=== PATIENT | female | born 1960 | race African-American/Black ===

== ENCOUNTER 2017-05-12 09:41 | Inpatient (IN) | payer MEDICAID ==
[~2017-05-12] VITALS: Ht 160 cm; Wt 64.9 kg
[~2017-05-12 09:41] MED LIST: AMLO2.5T45 PO; ASPI-1159 PO; CARI350T PO; DOCU-138 PO; KLOR-CON PO; METO-539 PO; ROSU5TAB PO; ZOLP5TAB2 PO
[2017-05-12] MEDS ORDERED: ONDANSETRON HCL 4MG/2ML VIAL IV STA (10:17)
[2017-05-12] MEDS ORDERED: SODIUM CHLORIDE 0.9% 1,000 ML IV ONE (10:17)
[2017-05-12 10:41] LABS: HEMATOCRIT. 36.4 % (36.0-48.0); HEMOGLOBIN. 12.2 g/dL (12.0-16.0); MEAN CORPUSCULAR HEMOGLOBIN 30.4 pg (28.0-32.0); MEAN CORPUSCULAR VOLUME 90.5 fL (81.0-99.0); MEAN PLATELET VOLUME 8.8 fl (7.4-10.4); PLATELET 195 x1000/uL (130-400); RED BLOOD CELL COUNT 4.02 mill/uL (4.2-5.4); RED CELL DISTRIBUTION WIDTH 12.7 % (11.6-14.6)
[2017-05-12 10:47] LABS: INR 1.2; PROTHROMBIN TIME 12.6 sec (9.4-11.6)
[2017-05-12 10:56] LABS: CARBON DIOXIDE 28 mEq/L (21-32); CHLORIDE 104 mEq/L (98-107); TROPONIN I 0.04 ng/mL (0.00-0.04)
[2017-05-12] MEDS ORDERED: MORPHINE SULFATE 4 MG/ML CPJ (NOT FOR IM USE) IV ONE (11:15)
[2017-05-12] MEDS ORDERED: POTASSIUM CHLORIDE 20MEQ TABLET SR PO ONE ×2 (11:15→21:45)
[2017-05-12 11:25] LABS: PLATELET ESTIMATE NORMAL
[2017-05-12] MEDS: HYDROCODONE/ACETAMINOPHEN 5/325MG TABLET PO PRN ×2 (14:43→20:40)
[2017-05-12] MEDS ORDERED: ALBUTEROL (0.083%) 2.5MG/3ML NEB HHN STA (15:01)
[2017-05-12 15:26] LABS: CHLORIDE 104 mEq/L (98-107)
[2017-05-12 15:36] LABS: CARBON DIOXIDE 29 mEq/L (21-32); CREATINE KINASE 380 IU/L (26-192); CREATINE KINASE MB FRACTION < 0.5 ng/mL (0.5-3.6)
[2017-05-12] MEDS ORDERED: MAGNESIUM/ALUMINUM HYDROXIDE/SIMETHICONE 30ML UDC PO PRN (17:25)
[2017-05-12] MEDS ORDERED: DOCUSATE SODIUM 100MG CAPSULE PO PRN (17:25)
[2017-05-12] MEDS ORDERED: IPRATROPIUM/ALBUTEROL 0.5-3(2.5)MG/3ML NEB INH PRN (17:25)
[2017-05-12] MEDS ORDERED: CLONIDINE 0.1MG TABLET PO PRN (17:25)
[2017-05-12] MEDS: ASPIRIN 325MG EC TABLET PO SCH ×2 (17:30→18:52)
[2017-05-12 17:38] VITALS: BP 112/59
[2017-05-12] MEDS: ACETAMINOPHEN 325MG TABLET PO PRN (17:48)
[2017-05-12] MEDS ORDERED: POTASSIUM CHLORIDE 20MEQ TABLET SR PO NR (18:00)
[2017-05-12] MEDS: ENOXAPARIN 40MG/0.4ML SYR SUBCUT SCH (18:09)
[2017-05-12] MEDS ORDERED: METO25TA6 PO (18:32)
[2017-05-12] MEDS ORDERED: LISI-604 PO (18:32)
[2017-05-12] MEDS ORDERED: CARI350T27 PO (18:32)
[2017-05-12] MEDS ORDERED: AMLO5TAB4 PO (18:32)
[2017-05-12] MEDS: GUAIFENESIN 200MG/10ML SUGAR FREE UDC PO PRN (18:55)
[2017-05-12 20:00] VITALS: BP 98/54
[2017-05-12] MEDS: AMLODIPINE 2.5MG TABLET PO SCH (21:00)
[2017-05-12] MEDS ORDERED: MAGNESIUM 2 G PREMIX 50 ML IV NR (23:00)
[2017-05-12 23:33] LABS: CREATINE KINASE 430 IU/L (26-192); CREATINE KINASE MB FRACTION < 0.5 ng/mL (0.5-3.6)
[2017-05-12] MEDS: HYDROMORPHONE HCL/PF 2MG/ML CPJ IV PRN (23:40)
[2017-05-13] VITALS (7 sets, daily range): BP systolic 106–158; BP diastolic 63–88
[2017-05-13] MEDS: GUAIFENESIN 200MG/10ML SUGAR FREE UDC PO PRN ×2 (02:38→10:12)
[2017-05-13] MEDS: ACETAMINOPHEN 325MG TABLET PO PRN ×2 (02:38→16:52)
[2017-05-13 06:33] LABS: BASOPHILS % 0.4 % (0.0-2.0); HEMATOCRIT. 33.6 % (36.0-48.0); HEMOGLOBIN. 11.6 g/dL (12.0-16.0); LYMPHOCYTES % 36.5 % (20.0-50.0); MEAN CORPUSCULAR HEMOGLOBIN 31.5 pg (28.0-32.0); MEAN CORPUSCULAR VOLUME 91.3 fL (81.0-99.0); MONOCYTES % 14.8 % (2.0-8.0); NEUTROPHILS % 48.3 % (40.0-76.0); PLATELET 145 x1000/uL (130-400); RED BLOOD CELL COUNT 3.68 mill/uL (4.2-5.4); RED CELL DISTRIBUTION WIDTH 12.9 % (11.6-14.6)
[2017-05-13] MEDS: HYDROMORPHONE HCL/PF 2MG/ML CPJ IV PRN ×3 (06:41→18:58)
[2017-05-13 08:22] LABS: CHLORIDE 104 mEq/L (98-107)
[2017-05-13] MEDS: ASPIRIN 325MG EC TABLET PO SCH (10:13)
[2017-05-13] MEDS: AMLODIPINE 2.5MG TABLET PO SCH ×2 (10:13→20:51)
[2017-05-13 10:14] LABS: CARBON DIOXIDE 26 mEq/L (21-32); CREATINE KINASE 422 IU/L (26-192); CREATINE KINASE MB FRACTION 0.5 ng/mL (0.5-3.6); HDL CHOLESTEROL 51 mg/dL (40-59); LDL CHOLESTEROL 63 mg/dL (5-100); TROPONIN I 0.05 ng/mL (0.00-0.04)
[2017-05-13] MEDS ORDERED: POTASSIUM CHLORIDE 20MEQ TABLET SR PO ONE (13:32)
[2017-05-13] MEDS ORDERED: IPRATROPIUM/ALBUTEROL 0.5-3(2.5)MG/3ML NEB HHN PRN (13:45)
[2017-05-13] MEDS: POTASSIUM CHLORIDE 20MEQ TABLET SR PO SCH ×2 (14:30→17:06)
[2017-05-13] MEDS: LEVOFLOXACIN 500MG PREMIX 100 ML IV SCH (15:38)
[2017-05-13] MEDS ORDERED: RACEPINEPHRINE 2.25% 0.5ML NEB VIAL HHN PRN (15:45)
[2017-05-13] MEDS: METHYLPREDNISOLONE SOD SUCC 125 MG/2 ML VIAL IV SCH (16:51)
[2017-05-13] MEDS: IPRATROPIUM/ALBUTEROL 0.5-3(2.5)MG/3ML NEB HHN SCH ×2 (17:05→21:18)
[2017-05-13] MEDS: BUDESONIDE 0.5MG/2ML NEB HHN SCH ×2 (17:06→21:18)
[2017-05-13] MEDS: ENOXAPARIN 40MG/0.4ML SYR SUBCUT SCH (18:53)
[2017-05-13] MEDS: FAMOTIDINE 20MG TABLET PO SCH (20:52)
[2017-05-13] MEDS: ONDANSETRON HCL 4MG/2ML VIAL IV PRN (20:52)
[2017-05-14] VITALS: BP 122/80
[2017-05-14] MEDS: ACETAMINOPHEN 325MG TABLET PO PRN (00:10)
[2017-05-14] MEDS: METHYLPREDNISOLONE SOD SUCC 125 MG/2 ML VIAL IV SCH ×3 (00:10→19:41)
[2017-05-14] MEDS: IPRATROPIUM/ALBUTEROL 0.5-3(2.5)MG/3ML NEB HHN SCH ×6 (00:46→20:35)
[2017-05-14 04:00] VITALS: BP 113/65
[2017-05-14] MEDS: HYDROMORPHONE HCL/PF 2MG/ML CPJ IV PRN ×3 (04:08→20:15)
[2017-05-14 06:24] LABS: HEMATOCRIT. 36.9 % (36.0-48.0); HEMOGLOBIN. 12.7 g/dL (12.0-16.0); MEAN CORPUSCULAR HEMOGLOBIN 31.3 pg (28.0-32.0); MEAN CORPUSCULAR VOLUME 90.7 fL (81.0-99.0); MEAN PLATELET VOLUME 9.5 fl (7.4-10.4); PLATELET 159 x1000/uL (130-400); RED BLOOD CELL COUNT 4.07 mill/uL (4.2-5.4); RED CELL DISTRIBUTION WIDTH 12.9 % (11.6-14.6)
[2017-05-14 08:00] VITALS: BP 135/61
[2017-05-14] MEDS: ASPIRIN 81MG EC TABLET PO SCH (08:49)
[2017-05-14] MEDS: FAMOTIDINE 20MG TABLET PO SCH ×2 (08:49→20:14)
[2017-05-14] MEDS: AMLODIPINE 2.5MG TABLET PO SCH ×2 (08:54→20:14)
[2017-05-14 09:37] LABS: CHLORIDE 102 mEq/L (98-107)
[2017-05-14 09:51] LABS: CARBON DIOXIDE 23 mEq/L (21-32); TROPONIN I 0.03 ng/mL (0.00-0.04)
[2017-05-14] MEDS: BUDESONIDE 0.5MG/2ML NEB HHN SCH ×2 (09:55→20:36)
[2017-05-14 12:00] VITALS: BP 129/80
[2017-05-14] MEDS: OSELTAMIVIR 75MG CAPSULE PO SCH ×2 (12:51→20:14)
[2017-05-14] MEDS: ONDANSETRON HCL 4MG/2ML VIAL IV PRN (13:03)
[2017-05-14] MEDS ORDERED: POTASSIUM CHLORIDE 20MEQ TABLET SR PO SCH (14:00)
[2017-05-14] MEDS: LEVOFLOXACIN 500MG PREMIX 100 ML IV SCH (14:49)
[2017-05-14 16:00] VITALS: BP 98/71
[2017-05-14 17:02] LABS: PLATELET ESTIMATE NORMAL
[2017-05-14] MEDS: AZITHROMYCIN 500 MG TABLET PO SCH (19:40)
[2017-05-14] MEDS: ENOXAPARIN 40MG/0.4ML SYR SUBCUT SCH (19:41)
[2017-05-14 20:00] VITALS: BP 130/75
[2017-05-14] MEDS: GUAIFENESIN 200MG/10ML SUGAR FREE UDC PO PRN (21:07)
[2017-05-14] MEDS: ZOLPIDEM TARTRATE 5MG TABLET PO PRN (21:07)
[2017-05-14 21:19] LABS: CLARITY URINE CLEAR (CLEAR); COLOR URINE YELLOW (YELLOW); KETONES URINE NEGATIVE (NEGATIVE); LEUKOCYTE ESTERASE URINE NEGATIVE (NEGATIVE); NITRITE URINE NEGATIVE (NEGATIVE); OCCULT BLOOD URINE NEGATIVE (NEGATIVE); PH URINE 5.5 (4.5-8.0); PROTEIN URINE TRACE (NEGATIVE); SPECIFIC GRAVITY URINE 1.014 (1.005-1.030); UROBILINOGEN URINE 0.2 E.U./dL (0.2-1.0)
[2017-05-14 21:36] LABS: *AMPHETAMINES SCREEN URINE NEGATIVE (NEGATIVE); *BARBITURATES SCREEN URINE NEGATIVE (NEGATIVE); *BENZODIAZEPINES SCREEN URINE NEGATIVE (NEGATIVE); *COCAINE SCREEN URINE PRESUMTIVE POSITIVE (NEGATIVE); CANNABINOID URINE SCREEN PRESUMTIVE POSITIVE (NEGATIVE); METHADONE URINE SCREEN NEGATIVE (NEGATIVE); OPIATES URINE SCREEN PRESUMTIVE POSITIVE (NEGATIVE); PHENCYCLIDINE URINE SCREEN NEGATIVE (NEGATIVE)
[2017-05-15] VITALS: BP 142/78
[2017-05-15] MEDS: METHYLPREDNISOLONE SOD SUCC 125 MG/2 ML VIAL IV SCH ×2 (00:01→08:51)
[2017-05-15] MEDS: ACETYLCYSTEINE 100MG/ML 10% VIAL 4ML INH SCH ×2 (00:06→15:27)
[2017-05-15] MEDS: IPRATROPIUM/ALBUTEROL 0.5-3(2.5)MG/3ML NEB HHN SCH ×5 (00:35→21:00)
[2017-05-15] MEDS: HYDROMORPHONE HCL/PF 2MG/ML CPJ IV PRN ×3 (03:49→21:11)
[2017-05-15 04:00] VITALS: BP 156/88
[2017-05-15 07:08] LABS: CARBON DIOXIDE 30 mEq/L (21-32); CHLORIDE 100 mEq/L (98-107)
[2017-05-15 07:22] LABS: HEMOGLOBIN. 13.3 g/dL (12.0-16.0); MEAN CORPUSCULAR HEMOGLOBIN 30.9 pg (28.0-32.0); MEAN CORPUSCULAR VOLUME 90.6 fL (81.0-99.0); MEAN PLATELET VOLUME 9.4 fl (7.4-10.4); PLATELET 172 x1000/uL (130-400)
[2017-05-15] MEDS: BUDESONIDE 0.5MG/2ML NEB HHN SCH (07:48)
[2017-05-15 08:00] VITALS: BP 137/78
[2017-05-15] MEDS: AZITHROMYCIN 500 MG TABLET PO SCH (08:51)
[2017-05-15] MEDS: FAMOTIDINE 20MG TABLET PO SCH ×2 (08:51→20:48)
[2017-05-15] MEDS: AMLODIPINE 2.5MG TABLET PO SCH ×2 (08:51→20:51)
[2017-05-15] MEDS: ASPIRIN 81MG EC TABLET PO SCH (08:51)
[2017-05-15] MEDS: OSELTAMIVIR 75MG CAPSULE PO SCH ×2 (08:51→20:49)
[2017-05-15] MEDS: ONDANSETRON HCL 4MG/2ML VIAL IV PRN (08:51)
[2017-05-15 11:29] LABS: PLATELET ESTIMATE NORMAL
[2017-05-15 12:00] VITALS: BP 128/79
[2017-05-15 16:00] VITALS: BP 148/82
[2017-05-15] MEDS: METHYLPREDNISOLONE SOD SUCC 40 MG/ML VIAL IV SCH ×2 (17:43→23:35)
[2017-05-15] MEDS: ENOXAPARIN 40MG/0.4ML SYR SUBCUT SCH (17:44)
[2017-05-15 20:00] VITALS: BP 126/74
[2017-05-15] MEDS: ZOLPIDEM TARTRATE 5MG TABLET PO PRN (21:10)
[2017-05-15] MEDS: ACETAMINOPHEN 325MG TABLET PO PRN (23:35)
[2017-05-16] VITALS: BP 138/89
[2017-05-16] MEDS: IPRATROPIUM/ALBUTEROL 0.5-3(2.5)MG/3ML NEB HHN SCH ×4 (00:06→12:26)
[2017-05-16] MEDS: GUAIFENESIN 200MG/10ML SUGAR FREE UDC PO PRN (03:11)
[2017-05-16] MEDS: HYDROMORPHONE HCL/PF 2MG/ML CPJ IV PRN ×2 (03:13→11:43)
[2017-05-16 04:00] VITALS: BP 140/95
[2017-05-16] MEDS: BUDESONIDE 0.5MG/2ML NEB HHN SCH ×2 (04:00→08:35)
[2017-05-16 06:25] LABS: HEMATOCRIT. 38.6 % (36.0-48.0); HEMOGLOBIN. 13.1 g/dL (12.0-16.0); MEAN CORPUSCULAR HEMOGLOBIN 30.9 pg (28.0-32.0); MEAN CORPUSCULAR VOLUME 91.3 fL (81.0-99.0); MEAN PLATELET VOLUME 9.8 fl (7.4-10.4); PLATELET 175 x1000/uL (130-400); RED BLOOD CELL COUNT 4.23 mill/uL (4.2-5.4); RED CELL DISTRIBUTION WIDTH 12.9 % (11.6-14.6)
[2017-05-16 08:00] VITALS: BP 146/93
[2017-05-16] MEDS: ACETYLCYSTEINE 100MG/ML 10% VIAL 4ML INH SCH (08:36)
[2017-05-16] MEDS: ASPIRIN 81MG EC TABLET PO SCH (08:56)
[2017-05-16] MEDS: OSELTAMIVIR 75MG CAPSULE PO SCH (08:56)
[2017-05-16] MEDS: METHYLPREDNISOLONE SOD SUCC 40 MG/ML VIAL IV SCH (08:56)
[2017-05-16] MEDS: AZITHROMYCIN 500 MG TABLET PO SCH (08:56)
[2017-05-16] MEDS: FAMOTIDINE 20MG TABLET PO SCH (08:56)
[2017-05-16] MEDS: AMLODIPINE 2.5MG TABLET PO SCH (08:56)
[2017-05-16 09:40] LABS: PLATELET ESTIMATE NORMAL
[2017-05-16 10:32] LABS: CARBON DIOXIDE 28 mEq/L (21-32); CHLORIDE 98 mEq/L (98-107)
[2017-05-16] MEDS: ONDANSETRON HCL 4MG/2ML VIAL IV PRN (10:42)
[2017-05-16 12:00] VITALS: BP 132/88
[2017-05-16 14:19] VITALS: BP 132/88
[2017-05-16] MEDS ORDERED: BUDESONIDE 0.5MG/2ML NEB HHN SCH (16:00)
== END 2017-05-16 15:10 | disposition home or self-care (01) | DRG 140 ==
LOC: ER 09:47 → 5WST 11:20 → EDBEDREQTM 11:22 → EDBEDREQ 11:22 → ENRESERV 15:51
PROVIDERS: ADMIT Internal Medicine; ATTEND Internal Medicine
DX: J44.0 Chronic obstructive pulmonary disease with (acute) lower respiratory infection (principal); J96.00 Acute respiratory failure, unspecified whether with hypoxia or hypercapnia; I24.9 Acute ischemic heart disease, unspecified; E87.6 Hypokalemia; J44.1 Chronic obstructive pulmonary disease with (acute) exacerbation; I25.10 Atherosclerotic heart disease of native coronary artery without angina pectoris; I49.3 Ventricular premature depolarization; D72.819 Decreased white blood cell count, unspecified; I11.9 Hypertensive heart disease without heart failure; D64.9 Anemia, unspecified; E78.00 Pure hypercholesterolemia, unspecified; E78.5 Hyperlipidemia, unspecified; J40 Bronchitis, not specified as acute or chronic; J10.1 Influenza due to other identified influenza virus with other respiratory manifestations; Z87.891 Personal history of nicotine dependence; Z88.6 Allergy status to analgesic agent; Z79.82 Long term (current) use of aspirin; Z79.899 Other long term (current) drug therapy; Z78.9 Other specified health status; Z82.49 Family history of ischemic heart disease and other diseases of the circulatory system; Z90.710 Acquired absence of both cervix and uterus; Z95.1 Presence of aortocoronary bypass graft
CPT/HCPCS: 36415; 71045; 80048; 80053; 80061; 80305; 81001; 81003; 82550; 82553; 83605; 83735; 83880; 84443; 84484; 85025; 85379; 85610; 87040; 87070; 87086; 87804; 93005; 93306; 93970; 94640; 94644; 96374; 96375; 99285; J1170; J1650; J1956; J2270; J2405; J2920; J2930; J3475; J7030; J7608; J7611; J7620; J7626

== ENCOUNTER 2017-09-14 10:31 | Emergency (ER) | payer MEDICAID ==
[~2017-09-14 10:31] MED LIST changes: -AMLO2.5T45 PO; +AMLO5TAB4 PO; +CARI350T27 PO; -KLOR-CON PO; +LISI-604 PO; -METO-539 PO; +METO25TA6 PO
[2017-09-14] MEDS ORDERED: IBUPROFEN 600MG TABLET PO ONE (11:15)
[2017-09-14] MEDS ORDERED: HYDROCODONE/ACETAMINOPHEN 5/325MG TABLET PO ONE (11:30)
[2017-09-14 14:07] VITALS: BP 128/99
== END 2017-09-14 14:10 | disposition home or self-care (01) ==
LOC: ER 11:48
DX: S91.312A Laceration without foreign body, left foot, initial encounter (principal); I10 Essential (primary) hypertension; Z88.8 Allergy status to other drugs, medicaments and biological substances; Z79.82 Long term (current) use of aspirin; W25.XXXA Contact with sharp glass, initial encounter; Y93.89 Activity, other specified; Y92.89 Other specified places as the place of occurrence of the external cause; Y99.8 Other external cause status
CPT/HCPCS: 73630; 99284; Z7610

== ENCOUNTER 2018-05-16 11:31 | Inpatient (IN) | payer MEDICAID ==
[~2018-05-16] VITALS: Ht 162.6 cm; Wt 57.6 kg
[~2018-05-16 11:31] MED LIST changes: -CARI350T PO; +S350 PO
[2018-05-16] MEDS ORDERED: ONDANSETRON HCL 4MG/2ML INJ IV STA (12:13)
[2018-05-16] MEDS ORDERED: MAGNESIUM 2 G PREMIX 50 ML IV STA (12:13)
[2018-05-16] MEDS ORDERED: IPRATROPIUM BROMIDE (0.02%) 0.5MG/2.5ML NEB HHN STA (12:13)
[2018-05-16] MEDS ORDERED: MORPHINE SULFATE 4 MG/ML CPJ (NOT FOR IM USE) IV STA (12:13)
[2018-05-16] MEDS ORDERED: METHYLPREDNISOLONE SOD SUCC 125 MG/2 ML VIAL IV STA (12:13)
[2018-05-16] MEDS ORDERED: ALBUTEROL (0.083%) 2.5MG/3ML NEB HHN STA (12:13)
[2018-05-16 13:18] LABS: BASOPHILS % 0.6 % (0.0-2.0); EOSINOPHILS % 1.9 % (0.0-5.0); HEMATOCRIT. 45.9 % (36.0-48.0); HEMOGLOBIN. 15.4 g/dL (12.0-16.0); LYMPHOCYTES % 19.2 % (20.0-50.0); MEAN CORPUSCULAR HEMOGLOBIN 30.5 pg (28.0-32.0); MEAN CORPUSCULAR VOLUME 90.5 fL (81.0-99.0); MEAN PLATELET VOLUME 8.9 fl (7.4-10.4); MONOCYTES % 6.3 % (2.0-8.0); PLATELET 232 x1000/uL (130-400); RED BLOOD CELL COUNT 5.07 mill/uL (4.2-5.4); RED CELL DISTRIBUTION WIDTH 13.2 % (11.6-14.6)
[2018-05-16 13:27] LABS: PARTIAL THROMBOPLASTIN TIME 26.1 sec (23.4-31.0); PROTHROMBIN TIME 10.1 sec (9.1-11.1)
[2018-05-16 13:30] LABS: CHLORIDE 104 mEq/L (98-107)
[2018-05-16] MEDS ORDERED: ASPIRIN 81MG TABLET PO ONE (14:15)
[2018-05-16] MEDS ORDERED: POTASSIUM CHLORIDE 20MEQ TABLET SR PO ONE (14:15)
[2018-05-16] MEDS ORDERED: ONDANSETRON HCL 4MG/2ML INJ IV PRN (14:15)
[2018-05-16] MEDS ORDERED: DOCUSATE SODIUM 100MG CAPSULE PO PRN (14:15)
[2018-05-16] MEDS ORDERED: MAGNESIUM/ALUMINUM HYDROXIDE/SIMETHICONE 30ML UDC PO PRN (14:15)
[2018-05-16] MEDS ORDERED: ACETAMINOPHEN 325MG TABLET PO PRN (14:15)
[2018-05-16] MEDS ORDERED: HYDROCODONE/ACETAMINOPHEN 5/325MG TABLET PO PRN (14:15)
[2018-05-16] MEDS ORDERED: NA PHOS,M-B/NA PHOS,DI-BA ENEMA 118ML PR PRN (14:15)
[2018-05-16] MEDS ORDERED: IPRATROPIUM/ALBUTEROL 0.5-3(2.5)MG/3ML NEB INH PRN (14:15)
[2018-05-16] MEDS ORDERED: CLONIDINE 0.1MG TABLET PO PRN (14:15)
[2018-05-16 14:59] LABS: CLARITY URINE CLEAR (CLEAR); COLOR URINE YELLOW (YELLOW); KETONES URINE NEGATIVE (NEGATIVE); LEUKOCYTE ESTERASE URINE NEGATIVE (NEGATIVE); NITRITE URINE NEGATIVE (NEGATIVE); OCCULT BLOOD URINE NEGATIVE (NEGATIVE); PH URINE 6.5 (4.5-8.0); PROTEIN URINE NEGATIVE (NEGATIVE); SPECIFIC GRAVITY URINE 1.011 (1.005-1.030); UROBILINOGEN URINE 0.2 E.U./dL (0.2-1.0)
[2018-05-16] MEDS: MORPHINE SULFATE 4 MG/ML CPJ (NOT FOR IM USE) IV PRN ×3 (15:08→23:35)
[2018-05-16 16:31] LABS: CHLORIDE 106 mEq/L (98-107)
[2018-05-16 22:02] VITALS: BP 157/90
[2018-05-16 22:06] VITALS: BP 157/90
[2018-05-16] MEDS: LORAZEPAM 2MG/ML CPJ IV PRN (22:40)
[2018-05-16 23:48] VITALS: BP 113/60
[2018-05-17] MEDS: MORPHINE SULFATE 4 MG/ML CPJ (NOT FOR IM USE) IV PRN ×5 (03:56→20:30)
[2018-05-17] MEDS: DIPHENHYDRAMINE 50MG/ML VIAL IV PRN ×5 (03:57→20:30)
[2018-05-17 04:00] VITALS: BP 132/73
[2018-05-17 08:00] VITALS: BP 149/81
[2018-05-17 08:07] LABS: BASOPHILS % 0.2 % (0.0-2.0); HEMATOCRIT. 37.4 % (36.0-48.0); HEMOGLOBIN. 12.3 g/dL (12.0-16.0); MEAN CORPUSCULAR HEMOGLOBIN 29.9 pg (28.0-32.0); MEAN CORPUSCULAR VOLUME 90.5 fL (81.0-99.0); MEAN PLATELET VOLUME 8.6 fl (7.4-10.4); MONOCYTES % 5.7 % (2.0-8.0); NEUTROPHILS % 83.1 % (40.0-76.0); PLATELET 200 x1000/uL (130-400); RED BLOOD CELL COUNT 4.13 mill/uL (4.2-5.4); RED CELL DISTRIBUTION WIDTH 13.4 % (11.6-14.6)
[2018-05-17] MEDS: GUAIFENESIN 200MG/10ML SUGAR FREE UDC PO PRN (08:15)
[2018-05-17] MEDS: ENOXAPARIN 40MG/0.4ML SYR SUBCUT SCH (08:16)
[2018-05-17] MEDS: ASPIRIN 81MG EC TABLET PO SCH (08:18)
[2018-05-17] MEDS: AMLODIPINE 5MG TABLET PO SCH ×2 (08:19→20:32)
[2018-05-17] MEDS: LORAZEPAM 2MG/ML CPJ IV PRN ×2 (08:19→21:23)
[2018-05-17 08:40] LABS: CHLORIDE 107 mEq/L (98-107)
[2018-05-17 08:49] LABS: CREATINE KINASE 81 IU/L (26-192); LDL CHOLESTEROL 110 mg/dL (5-100)
[2018-05-17 08:50] LABS: CREATINE KINASE MB FRACTION 1.3 ng/mL (0.5-3.6); HDL CHOLESTEROL 81 mg/dL (40-59)
[2018-05-17 08:51] LABS: T4 FREE 0.81 ng/dL (0.76-1.46)
[2018-05-17] MEDS ORDERED: LEVOFLOXACIN 500MG PREMIX 100 ML IV SCH (10:00)
[2018-05-17] MEDS ORDERED: CLONIDINE 0.2MG TABLET PO PRN (10:15)
[2018-05-17] MEDS ORDERED: AMLODIPINE 5MG TABLET PO SCH (10:15)
[2018-05-17] MEDS: METHYLPREDNISOLONE SOD SUCC 125 MG/2 ML VIAL IV SCH ×2 (10:23→16:20)
[2018-05-17 12:00] VITALS: BP 128/76
[2018-05-17] MEDS ORDERED: CEFTRIAXONE 1,000 MG in DEXTROSE 5% WATER 50 ML IV SCH (13:45)
[2018-05-17] MEDS ORDERED: LORATADINE 10MG TABLET PO SCH (13:45)
[2018-05-17] MEDS ORDERED: BENZONATATE 100MG CAPSULE PO PRN (14:50)
[2018-05-17] MEDS ORDERED: CEFTRIAXONE 1 G PREMIX 50 ML IV SCH (16:00)
[2018-05-17 16:07] VITALS: BP 126/74
[2018-05-17] MEDS: AZITHROMYCIN 500 MG TABLET PO SCH (16:19)
[2018-05-17] MEDS: IPRATROPIUM/ALBUTEROL 0.5-3(2.5)MG/3ML NEB HHN SCH ×3 (16:35→23:21)
[2018-05-17] MEDS ORDERED: MONTELUKAST SODIUM 10MG TABLET PO SCH (17:00)
[2018-05-17 20:00] VITALS: BP 135/74
[2018-05-17] MEDS ORDERED: FAMOTIDINE 20MG TABLET PO SCH (21:00)
[2018-05-18] VITALS (7 sets, daily range): BP systolic 115–147; BP diastolic 70–89
[2018-05-18] MEDS: DIPHENHYDRAMINE 50MG/ML VIAL IV PRN ×5 (01:23→20:42)
[2018-05-18] MEDS: MORPHINE SULFATE 4 MG/ML CPJ (NOT FOR IM USE) IV PRN ×5 (01:24→22:45)
[2018-05-18] MEDS: IPRATROPIUM/ALBUTEROL 0.5-3(2.5)MG/3ML NEB HHN SCH ×6 (02:44→23:59)
[2018-05-18] MEDS: LORAZEPAM 2MG/ML CPJ IV PRN ×2 (06:33→20:42)
[2018-05-18 07:36] LABS: *AMPHETAMINES SCREEN URINE NEGATIVE (NEGATIVE); *BARBITURATES SCREEN URINE NEGATIVE (NEGATIVE); *BENZODIAZEPINES SCREEN URINE NEGATIVE (NEGATIVE); *COCAINE SCREEN URINE PRESUMTIVE POSITIVE (NEGATIVE)
[2018-05-18 07:37] LABS: METHADONE URINE SCREEN NEGATIVE (NEGATIVE); OPIATES URINE SCREEN PRESUMTIVE POSITIVE (NEGATIVE); PHENCYCLIDINE URINE SCREEN NEGATIVE (NEGATIVE)
[2018-05-18 07:38] LABS: CANNABINOID URINE SCREEN NEGATIVE (NEGATIVE)
[2018-05-18 08:24] LABS: HEMATOCRIT. 39.4 % (36.0-48.0); HEMOGLOBIN. 12.9 g/dL (12.0-16.0); MEAN CORPUSCULAR HEMOGLOBIN 29.8 pg (28.0-32.0); MEAN CORPUSCULAR VOLUME 90.8 fL (81.0-99.0); PLATELET 215 x1000/uL (130-400); RED BLOOD CELL COUNT 4.34 mill/uL (4.2-5.4); RED CELL DISTRIBUTION WIDTH 13.3 % (11.6-14.6)
[2018-05-18 09:02] LABS: CHLORIDE 105 mEq/L (98-107)
[2018-05-18 09:17] LABS: HDL CHOLESTEROL 94 mg/dL (40-59)
[2018-05-18 09:21] LABS: LDL CHOLESTEROL 117 mg/dL (5-100)
[2018-05-18 09:22] LABS: CREATINE KINASE 88 IU/L (26-192)
[2018-05-18] MEDS: GUAIFENESIN 200MG/10ML SUGAR FREE UDC PO PRN (09:27)
[2018-05-18] MEDS: METHYLPREDNISOLONE SOD SUCC 125 MG/2 ML VIAL IV SCH ×2 (09:27)
[2018-05-18] MEDS: ENOXAPARIN 40MG/0.4ML SYR SUBCUT SCH (09:27)
[2018-05-18] MEDS: ASPIRIN 81MG EC TABLET PO SCH (09:28)
[2018-05-18] MEDS: AMLODIPINE 5MG TABLET PO SCH ×2 (09:28→20:42)
[2018-05-18] MEDS: AZITHROMYCIN 500 MG TABLET PO SCH (09:28)
[2018-05-18 13:03] LABS: PLATELET ESTIMATE NORMAL
[2018-05-18] MEDS ORDERED: METHYLPREDNISOLONE SOD SUCC 125 MG/2 ML VIAL IV SCH (17:00)
[2018-05-19] VITALS: BP 159/68
[2018-05-19] MEDS: LORAZEPAM 2MG/ML CPJ IV PRN ×3 (01:39→22:27)
[2018-05-19] MEDS: DIPHENHYDRAMINE 50MG/ML VIAL IV PRN ×5 (01:39→23:40)
[2018-05-19] MEDS: GUAIFENESIN 200MG/10ML SUGAR FREE UDC PO PRN ×2 (03:51→08:33)
[2018-05-19] MEDS: MORPHINE SULFATE 4 MG/ML CPJ (NOT FOR IM USE) IV PRN ×5 (03:52→21:55)
[2018-05-19 04:00] VITALS: BP 141/69
[2018-05-19] MEDS: IPRATROPIUM/ALBUTEROL 0.5-3(2.5)MG/3ML NEB HHN SCH ×5 (04:26→21:13)
[2018-05-19 07:09] LABS: CHLORIDE 104 mEq/L (98-107)
[2018-05-19 08:00] VITALS: BP 156/93
[2018-05-19] MEDS: AZITHROMYCIN 500 MG TABLET PO SCH (08:33)
[2018-05-19] MEDS: AMLODIPINE 5MG TABLET PO SCH ×2 (08:33→21:00)
[2018-05-19] MEDS: ENOXAPARIN 40MG/0.4ML SYR SUBCUT SCH (08:34)
[2018-05-19] MEDS: ASPIRIN 81MG EC TABLET PO SCH (08:34)
[2018-05-19] MEDS ORDERED: TERBUTALINE SULFATE 1MG/ML VIAL SUBCUT SCH (10:00)
[2018-05-19] MEDS ORDERED: POTASSIUM CHLORIDE 20MEQ TABLET SR PO SCH (10:15)
[2018-05-19 10:28] LABS: BG BASE EXCESS 0.8 mmol/L (-2.0-2.0); BG CARBOXYHEMOGLOBIN 0.7 % (0.5-1.5); BG DEOXYHEMOGLOBIN 4.7 % (0.0-5.0); BG FRACTION INSPIRED OXYGEN 28; BG HCO3 ACT 25.9 mmol/L (22.0-26.0); BG METHEMOGLOBIN 0.1 % (0.0-1.5); BG OXYGEN SATURATION 95.3 % (92.0-98.5); BG OXYHEMOGLOBIN 94.5 % (94.0-97.0); BG PH 7.397 (7.350-7.450); BG PO2 82.4 mmHg (75.0-100.0); BG SAMPLE SITE RIGHT BRACHIAL; BG TOTAL HEMOGLOBIN 13.1 g/dL (12.0-18.0); BG VENT MODE NASAL CANNULA
[2018-05-19] MEDS: NICOTINE 14MG PATCH TD SCH (10:50)
[2018-05-19 12:00] VITALS: BP 109/64
[2018-05-19] MEDS: BENZONATATE 100MG CAPSULE PO SCH ×2 (13:14→21:54)
[2018-05-19] MEDS: METHYLPREDNISOLONE SOD SUCC 125 MG/2 ML VIAL IV SCH ×2 (13:15→21:54)
[2018-05-19] MEDS: CLONIDINE 0.1MG TABLET PO SCH ×2 (13:19→21:54)
[2018-05-19] MEDS ORDERED: LIDOCAINE HCL/PF 1% 2ML VIAL ONE (14:22)
[2018-05-19 16:00] VITALS: BP 115/64
[2018-05-19 20:00] VITALS: BP 126/78
[2018-05-20] VITALS: BP 136/61
[2018-05-20] MEDS: IPRATROPIUM/ALBUTEROL 0.5-3(2.5)MG/3ML NEB HHN SCH ×4 (00:41→14:00)
[2018-05-20 04:00] VITALS: BP 113/73
[2018-05-20] MEDS: MORPHINE SULFATE 4 MG/ML CPJ (NOT FOR IM USE) IV PRN ×2 (04:05→10:52)
[2018-05-20] MEDS: CLONIDINE 0.1MG TABLET PO SCH ×2 (06:00→12:55)
[2018-05-20 06:26] VITALS: BP 108/74
[2018-05-20] MEDS: METHYLPREDNISOLONE SOD SUCC 125 MG/2 ML VIAL IV SCH ×2 (06:27→13:06)
[2018-05-20] MEDS: BENZONATATE 100MG CAPSULE PO SCH ×2 (06:27→13:06)
[2018-05-20] MEDS: LORAZEPAM 2MG/ML CPJ IV PRN (06:42)
[2018-05-20 06:51] LABS: HEMATOCRIT. 38.6 % (36.0-48.0); HEMOGLOBIN. 12.9 g/dL (12.0-16.0); MEAN CORPUSCULAR HEMOGLOBIN 30.2 pg (28.0-32.0); MEAN CORPUSCULAR VOLUME 90.1 fL (81.0-99.0); PLATELET 222 x1000/uL (130-400); RED BLOOD CELL COUNT 4.29 mill/uL (4.2-5.4); RED CELL DISTRIBUTION WIDTH 13.4 % (11.6-14.6)
[2018-05-20 08:00] VITALS: BP 145/81
[2018-05-20] MEDS: ASPIRIN 81MG EC TABLET PO SCH (08:52)
[2018-05-20] MEDS: AZITHROMYCIN 500 MG TABLET PO SCH (08:52)
[2018-05-20] MEDS: ENOXAPARIN 40MG/0.4ML SYR SUBCUT SCH (08:52)
[2018-05-20] MEDS: AMLODIPINE 5MG TABLET PO SCH (08:52)
[2018-05-20] MEDS: NICOTINE 14MG PATCH TD SCH (08:53)
[2018-05-20] MEDS: DIPHENHYDRAMINE 50MG/ML VIAL IV PRN ×2 (08:53→13:58)
[2018-05-20 12:00] VITALS: BP 112/72
[2018-05-20 12:36] LABS: CHLORIDE 102 mEq/L (98-107)
[2018-05-20 14:20] LABS: PLATELET ESTIMATE NORMAL
[2018-05-20] MEDS ORDERED: TERBUTALINE SULFATE 1MG/ML VIAL SUBCUT NR (14:30)
[2018-05-20 15:10] VITALS: BP 112/72
[2018-05-20] MEDS ORDERED: METHYLPREDNISOLONE SOD SUCC 40 MG/ML VIAL IV SCH (22:00)
== END 2018-05-20 15:25 | disposition home or self-care (01) | DRG 816 ==
LOC: ER 11:31 → EDBEDREQ 12:22 → 7WST 13:32 → EDBEDREQ 13:35 → ENRESERV 20:30
PROVIDERS: ADMIT Internal Medicine; ATTEND Internal Medicine
DX: T40.5X1A Poisoning by cocaine, accidental (unintentional), initial encounter (principal); J96.00 Acute respiratory failure, unspecified whether with hypoxia or hypercapnia; J68.0 Bronchitis and pneumonitis due to chemicals, gases, fumes and vapors; I50.9 Heart failure, unspecified; I11.0 Hypertensive heart disease with heart failure; J44.1 Chronic obstructive pulmonary disease with (acute) exacerbation; E78.5 Hyperlipidemia, unspecified; F19.10 Other psychoactive substance abuse, uncomplicated; E78.00 Pure hypercholesterolemia, unspecified; J44.0 Chronic obstructive pulmonary disease with (acute) lower respiratory infection; F14.10 Cocaine abuse, uncomplicated; I25.10 Atherosclerotic heart disease of native coronary artery without angina pectoris; F17.200 Nicotine dependence, unspecified, uncomplicated; Z95.1 Presence of aortocoronary bypass graft; J20.9 Acute bronchitis, unspecified; T38.0X5A Adverse effect of glucocorticoids and synthetic analogues, initial encounter; I49.3 Ventricular premature depolarization; J98.11 Atelectasis; Z79.82 Long term (current) use of aspirin; Z79.899 Other long term (current) drug therapy; Z90.710 Acquired absence of both cervix and uterus; Z88.6 Allergy status to analgesic agent; Y92.89 Other specified places as the place of occurrence of the external cause
CPT/HCPCS: 36415; 36600; 71045; 80048; 80061; 80305; 82375; 82550; 82553; 82805; 83605; 83735; 83880; 84145; 84439; 84443; 84484; 85379; 87804; 93005; 93306; 93970; 94640; 96365; 96366; 96375; 99291; C1893; J0696; J1200; J1650; J1956; J2060; J2270; J2405; J2930; J3105; J3475; J3490; J7050; J7611; J7620

== ENCOUNTER 2020-07-11 12:39 | Emergency (ER) | payer MEDICAID ==
[~2020-07-11] VITALS: Ht 162.6 cm; Wt 93.0 kg
[~2020-07-11 12:39] MED LIST changes: -ASPI-1159 PO; +ASPI-1497 PO; +CARI350T28 PO; -LISI-604 PO; +LISI20TA31 PO; -S350 PO
[2020-07-11] MEDS ORDERED: T3 PO ×2 (13:28→13:37)
[2020-07-11] MEDS ORDERED: HYDROCODONE/ACETAMINOPHEN 5/325MG TABLET PO ONE (13:30)
[2020-07-11] MEDS ORDERED: KETOROLAC 30MG/ML VIAL IM ONE (13:30)
[2020-07-11 14:10] VITALS: BP 147/75
== END 2020-07-11 14:11 | disposition home or self-care (01) ==
LOC: ER 12:39
DX: M62.830 Muscle spasm of back (principal); I10 Essential (primary) hypertension; I25.10 Atherosclerotic heart disease of native coronary artery without angina pectoris; Z95.1 Presence of aortocoronary bypass graft
CPT/HCPCS: 99283

== ENCOUNTER 2020-07-13 13:04 | Emergency (ER) | payer MEDICAID ==
[~2020-07-13] VITALS: Ht 162.6 cm; Wt 72.3 kg
[~2020-07-13 13:04] MED LIST changes: +T3 PO
[2020-07-13] MEDS ORDERED: IBUP-2028 MT (13:58)
[2020-07-13] MEDS ORDERED: T3 PO (13:58)
[2020-07-13] MEDS ORDERED: IBUPROFEN 800MG TABLET PO ONE (14:00)
[2020-07-13] MEDS ORDERED: IBUPROFEN 800MG TABLET PO SCH (14:10)
[2020-07-13 14:20] VITALS: BP 113/83
== END 2020-07-13 14:45 | disposition home or self-care (01) ==
LOC: ER 13:04
DX: M25.552 Pain in left hip (principal); M54.5 Low back pain; E78.00 Pure hypercholesterolemia, unspecified; I11.9 Hypertensive heart disease without heart failure; Z95.1 Presence of aortocoronary bypass graft; Z91.018 Allergy to other foods; V43.62XA Car passenger injured in collision with other type car in traffic accident, initial encounter; Y93.89 Activity, other specified; Y92.488 Other paved roadways as the place of occurrence of the external cause
CPT/HCPCS: 99282

== ENCOUNTER → 2022-07-02 | Emergency (ER) | payer MEDICAID ==
[~2022-07-02] MED LIST changes: +BETA50CR5 TP; +CEPH500C2 PO; +HYDR453.3 PO; +IBUP-2028 MT; +PERM60CR4 TP; +SULF1TAB48 PO
== END ==
LOC: ER 23:44
DX: Z53.21 Procedure and treatment not carried out due to patient leaving prior to being seen by health care provider (principal)

== ENCOUNTER 2022-07-03 00:09 | Emergency (ER) | payer MEDICAID, OTHER ==
[~2022-07-03] VITALS: Ht 162.6 cm; Wt 63.0 kg
[~2022-07-03 00:09] MED LIST changes: -BETA50CR5 TP; -CEPH500C2 PO; -HYDR453.3 PO; -PERM60CR4 TP; -SULF1TAB48 PO
[2022-07-03 00:33] VITALS: BP 177/103
[2022-07-03] MEDS ORDERED: DEXAMETHASONE 1MG TABLET PO ONE (07:30)
[2022-07-03] MEDS ORDERED: CETIRIZINE 10MG TABLET PO SCH (07:30)
[2022-07-03] MEDS ORDERED: DEXAMETHASONE 4MG TABLET PO SCH (08:00)
[2022-07-03] MEDS ORDERED: DEXAMETHASONE 6MG TABLET PO SCH (08:00)
[2022-07-03 08:35] LABS: BASOPHILS % 0.9 % (0.0-2.0); EOSINOPHILS % 3.6 % (0.0-5.0); HEMATOCRIT. 40.7 % (36.0-48.0); HEMOGLOBIN. 13.7 g/dL (12.0-16.0); LYMPHOCYTES % 33.2 % (20.0-50.0); MEAN CORPUSCULAR HEMOGLOBIN 29.8 pg (28.0-32.0); MEAN CORPUSCULAR VOLUME 88.7 fL (81.0-99.0); MEAN PLATELET VOLUME 8.1 fl (7.4-10.4); MONOCYTES % 7.6 % (2.0-8.0); NEUTROPHILS % 54.7 % (40.0-76.0); PLATELET 261 x1000/uL (130-400); RED BLOOD CELL COUNT 4.59 mill/uL (4.2-5.4); RED CELL DISTRIBUTION WIDTH 13.7 % (11.6-14.6)
[2022-07-03] MEDS ORDERED: POTASSIUM CHLORIDE 20MEQ TABLET SR PO ONE (09:30)
[2022-07-03] MEDS ORDERED: PERM60CR4 TP (09:39)
== END 2022-07-03 10:07 | disposition home or self-care (01) ==
LOC: ER 00:09
DX: L29.9 Pruritus, unspecified (principal); E78.00 Pure hypercholesterolemia, unspecified; I25.2 Old myocardial infarction; I10 Essential (primary) hypertension; Z79.82 Long term (current) use of aspirin; Z79.899 Other long term (current) drug therapy
CPT/HCPCS: 36415; 80048; 85025; 99284; J8540

== ENCOUNTER 2022-07-12 03:06 | Emergency (ER) | payer OTHER ==
[~2022-07-12] VITALS: Ht 162.6 cm; Wt 64.0 kg
[~2022-07-12 03:06] MED LIST changes: +PERM60CR4 TP
[2022-07-12] MEDS ORDERED: SODIUM CHLORIDE 0.9% 1,000 ML IV ONE (04:30)
[2022-07-12 04:51] LABS: BASOPHILS % 0.7 % (0.0-2.0); EOSINOPHILS % 4.3 % (0.0-5.0); HEMATOCRIT. 39.9 % (36.0-48.0); HEMOGLOBIN. 13.4 g/dL (12.0-16.0); LYMPHOCYTES % 36.1 % (20.0-50.0); MEAN CORPUSCULAR HEMOGLOBIN 29.7 pg (28.0-32.0); MEAN CORPUSCULAR VOLUME 88.1 fL (81.0-99.0); MEAN PLATELET VOLUME 7.9 fl (7.4-10.4); MONOCYTES % 9.9 % (2.0-8.0); PLATELET 216 x1000/uL (130-400); RED BLOOD CELL COUNT 4.53 mill/uL (4.2-5.4); RED CELL DISTRIBUTION WIDTH 13.5 % (11.6-14.6)
[2022-07-12 05:03] LABS: CHLORIDE 103 mEq/L (98-107)
[2022-07-12] MEDS ORDERED: POTASSIUM CHLORIDE INJ 40 MEQ in DEXT 5% WATER 500 ML IV ONE (05:15)
[2022-07-12] MEDS ORDERED: MORPHINE SULFATE 4 MG/ML CPJ (NOT FOR IM USE) IV ONE (06:00)
[2022-07-12] MEDS ORDERED: KCL 20MEQ/100ML X 2 FOR TOTAL KCL 40MEQ/200ML IV NR (06:00)
[2022-07-12] MEDS ORDERED: AMPICILLIN SOD/SULBACTAM NA 1.5 G in SODIUM CHLORIDE 0.9% 50 ML IV SCH (06:00)
[2022-07-12] MEDS ORDERED: IOHEXOL-300 100 ML BOTTLE ONE (07:15)
[2022-07-12] MEDS ORDERED: POTASSIUM CHLORIDE 20MEQ TABLET SR PO ONE (07:30)
[2022-07-12] MEDS ORDERED: ACETAMINOPHEN WITH CODEINE 300/30MG TABLET PO ONE (07:30)
[2022-07-12 08:00] VITALS: BP 138/78
[2022-07-12] MEDS ORDERED: SULF1TAB48 PO (08:14)
[2022-07-12] MEDS ORDERED: BETA50CR5 TP (08:14)
[2022-07-12] MEDS ORDERED: CEPH500C2 PO (08:14)
== END 2022-07-12 08:44 | disposition home or self-care (01) ==
LOC: ER 03:20
DX: L98.8 Other specified disorders of the skin and subcutaneous tissue (principal); I10 Essential (primary) hypertension; F14.10 Cocaine abuse, uncomplicated; F11.10 Opioid abuse, uncomplicated; I25.10 Atherosclerotic heart disease of native coronary artery without angina pectoris; Z95.1 Presence of aortocoronary bypass graft
CPT/HCPCS: 36415; 70487; 80053; 85025; 96361; 96365; 96368; 96375; 99285; J0295; J2270; J3480; J7030; Q9967; Z7610; J7060

== ENCOUNTER 2022-08-25 19:55 | Emergency (ER) | payer OTHER ==
[~2022-08-25] VITALS: Ht 162.6 cm; Wt 63.5 kg
[~2022-08-25 19:55] MED LIST changes: +BETA50CR5 TP; +CEPH500C2 PO; +SULF1TAB48 PO
[2022-08-25] MEDS ORDERED: HYDR453.3 PO (20:01)
[2022-08-25] MEDS ORDERED: ACETAMINOPHEN 325MG TABLET PO ONE (20:30)
[2022-08-25 21:14] VITALS: BP 135/64
== END 2022-08-25 21:15 | disposition home or self-care (01) ==
LOC: ER 19:55
DX: L30.9 Dermatitis, unspecified (principal); M54.50 Low back pain, unspecified; E78.00 Pure hypercholesterolemia, unspecified; I10 Essential (primary) hypertension; I25.2 Old myocardial infarction; Z79.899 Other long term (current) drug therapy
CPT/HCPCS: 72100; 99283

== ENCOUNTER 2022-09-05 10:39 | Emergency (ER) | payer OTHER ==
[~2022-09-05] VITALS: Ht 160 cm; Wt 68.0 kg
[~2022-09-05 10:39] MED LIST changes: +HYDR453.3 PO
[2022-09-05 14:22] LABS: HEMATOCRIT. 42.2 % (36.0-48.0); MEAN CORPUSCULAR VOLUME 90.4 fL (81.0-99.0); MEAN PLATELET VOLUME 8.3 fl (7.4-10.4); PLATELET 264 x1000/uL (130-400); RED BLOOD CELL COUNT 4.67 mill/uL (4.2-5.4); RED CELL DISTRIBUTION WIDTH 13.6 % (11.6-14.6)
[2022-09-05 14:30] LABS: CHLORIDE 107 mEq/L (98-107)
[2022-09-05] MEDS ORDERED: ONDANSETRON HCL 4MG/2ML INJ IV STA (15:29)
[2022-09-05] MEDS ORDERED: MORPHINE SULFATE 4 MG/ML CPJ (NOT FOR IM USE) IV STA (15:29)
[2022-09-05] MEDS ORDERED: ASPIRIN 81MG TABLET PO ONE (15:30)
[2022-09-05 16:40] VITALS: BP 107/86
[2022-09-05 16:59] LABS: PLATELET ESTIMATE NORMAL
== END 2022-09-05 17:30 | disposition short-term general hospital (02) ==
LOC: ER 10:39 → CANBEDREQ 15:34 → ER 17:30
DX: I21.4 Non-ST elevation (NSTEMI) myocardial infarction (principal); R07.89 Other chest pain; I11.9 Hypertensive heart disease without heart failure; E78.00 Pure hypercholesterolemia, unspecified; I25.2 Old myocardial infarction; Z79.899 Other long term (current) drug therapy; Z79.82 Long term (current) use of aspirin
CPT/HCPCS: 36415; 71045; 80053; 83880; 84484; 85025; 93005; 96374; 96375; 99285; J2270; J2405; Z7610